=== PATIENT | male | born 1980 | race Caucasian/White ===

== ENCOUNTER 2020-02-18 17:24 | Emergency (ER) | payer MEDICARE, OTHER ==
[2020-02-18] MEDS ORDERED: KETOROLAC TROMETHAMINE 30MG/ML ONE (18:07)
[2020-02-18] MEDS ORDERED: ACETAMINOPHEN-CODEINE 300/30MG TAB ONE (18:12)
== END 2020-02-18 18:51 | disposition home or self-care (01) ==
LOC: EDH 17:24
DX: S82.255A Nondisplaced comminuted fracture of shaft of left tibia, initial encounter for closed fracture (principal); W11.XXXA Fall on and from ladder, initial encounter; Y93.39 Activity, other involving climbing, rappelling and jumping off; Y92.89 Other specified places as the place of occurrence of the external cause; Y99.8 Other external cause status
CPT/HCPCS: 29515; 73590; 99283; J1885; 29505